=== PATIENT | female | born 1975 | race Caucasian/White ===

== ENCOUNTER 2023-04-05 15:06 | Day surgery (SDC) | payer OTHER ==
[2023-04-02 09:14] VITALS: BMI 21.9
[~2023-04-05 15:06] MED LIST: LACTATED RINGERS 1,000 ML IV SCH; LIDOCAINE 1% (10MG/ML) FOR IV START INTRADERMA PRN
[2023-04-05 15:38] VITALS: RESP 16; TEMP 97.8
[2023-04-05] MEDS ORDERED: PROPOFOL 10 MG/ML 20 ML VIAL IV ONE (16:27)
[2023-04-05] MEDS ORDERED: LIDOCAINE 1% INJ 10MG/ML (20 ML MDV) ONE (16:27)
--- NOTE | 2023-04-05 16:31 | P.GSHP ---
History of Present Illness H&P Date: 04/05/23 Chief Complaint: History of colon polyps This a 48-year-old female who presents today for colonoscopy. Patient has a strong family history of colon cancer. She is appears history of colon polyps. She presents today for colonoscopy. Past Medical History Past Medical History: No Reported History History of Any Multi-Drug Resistant Organisms: None Reported Past Surgical History: Bariatric Surgery, Hysterectomy Additional Past Surgical History / Comment(s): gastric bypass ,hysterectomy may 2018, colonoscopy Past Anesthesia/Blood Transfusion Reactions: No Reported Reaction Additional Past Anesthesia/Blood Transfusion Reaction / Comment(s): no blood transfusion Smoking Status: Current every day smoker, Vaper - Past Family History Mother Family Medical History: Cancer Additional Family Medical History / Comment(s): colon cancer Medications and Allergies Home Medications Medication Instructions Recorded Confirmed Type Cetirizine HCl [Zyrtec] 10 mg PO DAILY 04/02/23 04/05/23 History Disulfiram [Antabuse] 250 mg PO HS 04/02/23 04/05/23 History Escitalopram [Lexapro] 20 mg PO HS 04/02/23 04/05/23 History Naltrexone HCl [Revia] 1 tab PO HS 04/02/23 04/05/23 History Allergies Allergy/AdvReac Type Severity Reaction Status Date / Time sulfamethoxazole AdvReac Rash/Hives Verified 04/05/23 15:25 [From Bactrim] trimethoprim [From Bactrim] AdvReac Rash/Hives Verified 04/05/23 15:25 Surgical - Exam Vital Signs Temp Pulse Resp BP Pulse Ox 97.8 F 77 16 110/64 99 04/05/23 15:31 04/05/23 15:31 04/05/23 15:31 04/05/23 15:31 04/05/23 15:31 - General well developed, well nourished, no distress - Eyes PERRL - ENT normal pinna - Neck no masses - Respiratory normal expansion - Cardiovascular Rhythm: regular - Abdomen Abdomen: soft, non tender Assessment and Plan Assessment: History of colon polyps and family history of colonic Cancer. We'll perform colonoscopy.
--- NOTE | 2023-04-05 16:47 | P.OP ---
Date of Procedure: 04/05/23 Preoperative Diagnosis: Family history of colon cancer History: Polyps Postoperative Diagnosis: Diverticulosis Procedure(s) Performed: Colonoscopy Anesthesia: MAC Surgeon: Jay Bell Pathology: none sent Condition: stable Disposition: PACU Description of Procedure: The patient's placed on the endoscopy table in the lateral position. She received IV sedation. Digital rectal exam was performed. This revealed no ebonized. Flexible colonoscope was then placed patient anus and passed throughout the entire colon. The ileocecal valve was visualized. Cecum, ascending and transverse colon appeared normal. In the descending and sigmoid colon; there is mild diverticular changes. Scope summer back the rectum this appeared normal. Scope withdrawn for patient.
[2023-04-05 17:12] VITALS: BP 110/76; PULSE 61
== END 2023-04-05 17:21 | disposition home or self-care (01) ==
LOC: ORWHC2ENDO 15:06
PROVIDERS: ATTEND Surgery
DX: Z12.11 Encounter for screening for malignant neoplasm of colon (principal); K57.30 Diverticulosis of large intestine without perforation or abscess without bleeding; F17.290 Nicotine dependence, other tobacco product, uncomplicated; Z80.0 Family history of malignant neoplasm of digestive organs; Z86.010 Personal history of colon polyps; Z98.84 Bariatric surgery status; Z90.710 Acquired absence of both cervix and uterus; Z79.891 Long term (current) use of opiate analgesic; Z79.899 Other long term (current) drug therapy; Z88.2 Allergy status to sulfonamides; Z88.1 Allergy status to other antibiotic agents
CPT/HCPCS: 45378; J2001; J2704

== ENCOUNTER 2023-06-04 07:21 | Observation (INO) | payer OTHER ==
[2023-06-04] MEDS: SODIUM CHLORIDE 0.9% 2,000 ML IV STA (07:35)
[2023-06-04 07:42] LABS: Basophils % (A) 0 %; Eosinophils % (A) 1 %; HCT 43.3 % (34.0-46.0); HGB 14.2 gm/dL (11.4-16.0); Lymphocytes # (A) 1.5 k/uL (1.0-4.8); Lymphocytes % (A) 25 %; MCH 33.3 pg (25.0-35.0); MCHC 32.8 g/dL (31.0-37.0); MCV 101.6 fL (80.0-100.0); Macrocytosis Slight; Mean Platelet Volume 7.9; Monocytes # (A) 0.3 k/uL (0-1.0); Monocytes % (A) 5 %; Neutrophils % (A) 66 %; Platelet Count 295 k/uL (150-450); RBC 4.26 m/uL (3.80-5.40); RDW 13.1 % (11.5-15.5); WBC 6.1 k/uL (3.8-10.6)
[2023-06-04 07:54] LABS: ALT 19 U/L (4-34); AST 29 U/L (14-36); African American GFR (CKD) >90 (>60 ml/min/1.73 sqM); Alcohol <10 mg/dL; Alkaline Phosphatase 46 U/L (38-126); Anion Gap 13 mmol/L; Blood Urea Nitrogen 9 mg/dL (7-17); Calcium 8.5 mg/dL (8.4-10.2); Carbon Dioxide 21 mmol/L (22-30); Chloride 107 mmol/L (98-107); Glucose 84 mg/dL (74-99); Non-African American GFR(CKD) >90 (>60 ml/min/1.73 sqM); Salicylate 1.4 mg/dL; Sodium 141 mmol/L (137-145); Total Bilirubin 0.4 mg/dL (0.2-1.3); Total Protein 6.8 g/dL (6.3-8.2)
[2023-06-04] MEDS: ONDANSETRON 4 MG/2 ML VIAL IVP STA (08:09)
[2023-06-04 08:37] LABS: Appearance,Urine Clear (Clear); Bacteria,Urine Rare /hpf; Bilirubin,Urine Negative (Negative); Blood,Urine Negative (Negative); Budding Yeast,Urine Occasional /hpf; Color,Urine Yellow; Glucose,Urine (UA) Negative (Negative); Ketones,Urine Negative (Negative); Leukocyte Esterase,Urine Negative (Negative); Mucus,Urine Rare /hpf; Nitrite,Urine Positive (Negative); PH, Urine 5.5 (5.0-8.0); Protein,Urine Trace (Negative); RBC,Urine 1 /hpf (0-5); Squamous Epithelial Cell,Urine 5 /hpf (0-4); Urobilinogen,Urine <2.0 mg/dL (<2.0); WBC,Urine 11 /hpf (0-5)
[2023-06-04] MEDS: DEXTROSE 5% IV ONE ×4 (08:43→18:54)
[2023-06-04] MEDS: ACETYLCYSTEINE IV ONE ×4 (08:43→18:54)
[2023-06-04] MEDS: WATER IV ONE ×4 (08:43→18:54)
[2023-06-04 08:47] LABS: Amphetamine Screen,Urine Not Detected (NotDetected); Barbiturate Screen,Urine Not Detected (NotDetected); Benzodiazepines Screen,Urine Detected (NotDetected); Cocaine Screen,Urine Not Detected (NotDetected); Methadone Screen, Urine Detected (NotDetected); Opiate Screen,Urine Not Detected (NotDetected); Oxycodone Screen, Urine Not Detected (NotDetected); Phencyclidine Screen,Urine Not Detected (NotDetected); Tricyclic Antidepressant,Urine Detected (NotDetected); Urn Cannabinoid Scrn Detected (NotDetected)
[2023-06-04] MEDS ORDERED: NALOXONE 0.4 MG/ML 1 ML VIAL IV PRN (08:56)
[2023-06-04] MEDS ORDERED: ONDANSETRON 4 MG/2 ML VIAL IVP PRN (08:56)
--- NOTE | 2023-06-04 08:56 | ED ---
Overdose HPI - General Chief Complaint: Overdose Stated Complaint: alt mental state Time Seen by Provider: 06/04/23 07:25 Source: EMS Mode of arrival: EMS Limitations: no limitations - History of Present Illness Initial Comments: 48-year-old female with past medical history of alcohol abuse, gastric bypass, depression who presents to the emergency department after acute Tylenol PM ingestion. States that at 10 PM last night she took 38 Tylenol PM which includes 500 mg of Tylenol and 25 mg of Benadryl per tablet. States that she ingested this in an attempt to harm herself she also drank some alcohol. She admits to nausea without vomiting. She is supposed to take Lexapro, Antabuse and naltrexone however has not taken these medications in 2 weeks. She denies ingestion of any other substances. Does admit to previous hospitalization for mental health when she was 16. She denies homicidal ideations. No other alleviating, precipitating or modifying factors - Related Data Home Medications Medication Instructions Recorded Confirmed Cetirizine HCl [Zyrtec] 10 mg PO DAILY 04/02/23 06/06/23 Disulfiram [Antabuse] 250 mg PO HS 04/02/23 06/06/23 Escitalopram [Lexapro] 20 mg PO HS 04/02/23 06/06/23 Naltrexone HCl [Revia] 1 tab PO HS 04/02/23 06/06/23 Allergies Allergy/AdvReac Type Severity Reaction Status Date / Time sulfamethoxazole Allergy Rash/Hives Verified 06/06/23 22:28 [From Bactrim] trimethoprim [From Bactrim] Allergy Rash/Hives Verified 06/06/23 22:28 Review of Systems ROS Statement: Those systems with pertinent positive or pertinent negative responses have been documented in the HPI. ROS Other: All systems not noted in ROS Statement are negative. Past Medical History History of Any Multi-Drug Resistant Organisms: None Reported Additional Past Surgical History / Comment(s): gastric bypass Past Psychological History: Anxiety, Depression Smoking Status: Current every day smoker Past Alcohol Use History: Abuse, Daily Past Drug Use History: Marijuana General Exam Limitations: no limitations General appearance: alert, in no apparent distress Head exam: Present: atraumatic, normocephalic, normal inspection Eye exam: Present: normal appearance, PERRL, EOMI. Absent: scleral icterus, conjunctival injection, periorbital swelling ENT exam: Present: normal exam, mucous membranes moist Neck exam: Present: normal inspection. Absent: tenderness, meningismus, lymphadenopathy Respiratory exam: Present: normal lung sounds bilaterally. Absent: respiratory distress, wheezes, rales, rhonchi, stridor Cardiovascular Exam: Present: regular rate, normal rhythm, normal heart sounds. Absent: systolic murmur, diastolic murmur, rubs, gallop, clicks GI/Abdominal exam: Present: soft, normal bowel sounds. Absent: distended, tenderness, guarding, rebound, rigid Extremities exam: Present: normal inspection, full ROM, normal capillary refill. Absent: tenderness, pedal edema, joint swelling, calf tenderness Back exam: Present: normal inspection Neurological exam: Present: alert, oriented X3, CN II-XII intact Psychiatric exam: Present: depressed, suicidal ideation Skin exam: Present: warm, dry, intact, normal color. Absent: rash Course Vital Signs 06/04/23 06/04/23 06/04/23 07:23 07:28 07:30 Temperature 99.1 F Pulse Rate 71 70 70 Respiratory 16 18 19 Rate Blood Pressure 146/92 146/92 146/92 O2 Sat by Pulse 99 99 100 Oximetry 06/04/23 06/04/23 06/04/23 08:00 08:30 09:00 Temperature Pulse Rate 67 63 67 Respiratory 18 17 19 Rate Blood Pressure 144/89 129/82 130/84 O2 Sat by Pulse 99 Oximetry 06/04/23 06/04/23 06/04/23 09:30 10:00 11:00 Temperature Pulse Rate 71 71 73 Respiratory 20 19 19 Rate Blood Pressure 138/83 135/87 131/79 O2 Sat by Pulse 100 97 Oximetry 06/04/23 12:00 Temperature Pulse Rate 67 Respiratory 18 Rate Blood Pressure 123/70 O2 Sat by Pulse 99 Oximetry Medical Decision Making - Medical Decision Making Was pt. sent in by a medical professional or institution (, PA, HEADER SET UP OPERATOR, urgent care, hospital, or longterm...) When possible be specific @ -No Did you speak to anyone other than the patient for history (EMS, parent, family, police, friend...)? What history was obtained from this source @ -EMS Did you review nursing and triage notes (agree or disagree)? Why? @ -I reviewed and agree with nursing and triage notes Were old charts reviewed (outside hosp., previous admission, EMS record, old EKG, old radiological studies, urgent care reports/EKG's, longterm records)? Report findings @ -No old charts were reviewed Differential Diagnosis (chest pain, altered mental status, abdominal pain women, abdominal pain men, vaginal bleeding, weakness, fever, dyspnea, syncope, headache, dizziness, GI bleed, back pain, seizure, CVA, palpatations, mental health, musculoskeletal)? @ -depression, suicidal ideations, homicidal ideations, unintentional overdose EKG interpreted by me (3pts min.). @ -yes and demonstrates sinus rhythm with a rate of 70. WA interval 147. QRS 102. QTC of 433. No acute ST segment elevations or depressions. X-rays interpreted by me (1pt min.). @ -None done CT interpreted by me (1pt min.). @ -None done U/S interpreted by me (1pt. min.). @ -None done What testing was considered but not performed or refused? (CT, X-rays, U/S, labs)? Why? @ -None What meds were considered but not given or refused? Why? @ -None Did you discuss the management of the patient with other professionals (professionals i.e. , PA, HEADER SET UP OPERATOR, lab, RT, psych nurse, social work instructor, music rehabilitation therapist, teacher, combat systems officer, correctional case manager)? Give summary @ -Dr. stokes Was smoking cessation discussed for >3mins.? @ -No Was critical care preformed (if so, how long)? @ -No Were there social determinants of health that impacted care today? How? (Homelessness, low income, unemployed, alcoholism, drug addiction, transportation, low edu. Level, literacy, decrease access to med. care, half-way, rehab)? @ -No Was there de-escalation of care discussed even if they declined (Discuss DNR or withdrawal of care, Hospice)? DNR status @ -No What co-morbidities impacted this encounter? (DM, HTN, Smoking, COPD, CAD, Cancer, CVA, ARF, Chemo, Hep., AIDS, mental health diagnosis, sleep apnea, morbid obesity)? @ -alcohol abuse, illicit drug abuse, depression Was patient admitted / discharged? Hospital course, mention meds given and route, prescriptions, significant lab abnormalities, going to OR and other pertinent info. @ -On arrival patient was placed into room 2. Thorough history and physical exam was performed. IV access was established. 12-lead EKG was obtained. Patient is given a dose of Zofran after normal intervals. Laboratory studies are conducted. We did talk to poison control. Recommended that NAC is started if her 10 hour Tylenol level is above 53. Level does return and is elevated. Patient started on NAC at this time. She did admit to suicidal ideations with attempt therefore patient is petitioned by nurse. Patient will be admitted to [facility] with psychiatry to consult Undiagnosed new problem with uncertain prognosis? @ -No Drug Therapy requiring intensive monitoring for toxicity (Heparin, Nitro, Insulin, Cardizem)? @ -No Were any procedures done? @ -No Diagnosis/symptom? @ -acute depression, acute intentional overdose Acute, or Chronic, or Acute on Chronic? @ -acute Uncomplicated (without systemic symptoms) or Complicated (systemic symptoms)? @ -complicated Side effects of treatment? @ -vomiting Exacerbation, Progression, or Severe Exacerbation? @ -No Poses a threat to life or bodily function? How? (Chest pain, USA, GA, pneumonia, PE, COPD, DKA, ARF, appy, cholecystitis, CVA, Diverticulitis, Homicidal, Suicidal, threat to staff... and all critical care pts) @ -yes, patient took medication in excess to overdose - Lab Data Result diagrams: 06/05/23 06:14 06/06/23 05:23 Lab Results 06/04/23 06/04/23 06/04/23 Range/Units 07:29 07:29 07:29 WBC 6.1 (3.8-10.6) k/uL RBC 4.26 (3.80-5.40) m/uL Hgb 14.2 (11.4-16.0) gm/dL Hct 43.3 (34.0-46.0) % MCV 101.6 H (80.0-100.0) fL MCH 33.3 (25.0-35.0) pg MCHC 32.8 (31.0-37.0) g/dL RDW 13.1 (11.5-15.5) % Plt Count 295 (150-450) k/uL MPV 7.9 Neutrophils % 66 % Lymphocytes % 25 % Monocytes % 5 % Eosinophils % 1 % Basophils % 0 % Neutrophils # 4.0 (1.3-7.7) k/uL Lymphocytes # 1.5 (1.0-4.8) k/uL Monocytes # 0.3 (0-1.0) k/uL Eosinophils # 0.0 (0-0.7) k/uL Basophils # 0.0 (0-0.2) k/uL Macrocytosis Slight Sodium (137-145) mmol/L Potassium (3.5-5.1) mmol/L Chloride (98-107) mmol/L Carbon Dioxide (22-30) mmol/L Anion Gap mmol/L BUN (7-17) mg/dL Creatinine (0.52-1.04) mg/dL Est GFR (CKD-EPI)AfAm (>60 ml/min/1.73 sqM) Est GFR (CKD-EPI)NonAf (>60 ml/min/1.73 sqM) Glucose (74-99) mg/dL Calcium (8.4-10.2) mg/dL Total Bilirubin (0.2-1.3) mg/dL AST (14-36) U/L ALT (4-34) U/L Alkaline Phosphatase (38-126) U/L Total Protein (6.3-8.2) g/dL Albumin (3.5-5.0) g/dL Urine Color Yellow Urine Appearance Clear (Clear) Urine pH 5.5 (5.0-8.0) Ur Specific [place] 1.050 H (1.001-1.035) Urine Protein Trace H (Negative) Urine Glucose (UA) Negative (Negative) Urine Ketones Negative (Negative) Urine Blood Negative (Negative) Urine Nitrite Positive H (Negative) Urine Bilirubin Negative (Negative) Urine Urobilinogen <2.0 (<2.0) mg/dL Ur Leukocyte Esterase Negative (Negative) Urine RBC 1 (0-5) /hpf Urine WBC 11 H (0-5) /hpf Ur Squamous Epith Cells 5 H (0-4) /hpf Urine Bacteria Rare H (None) /hpf Urine Mucus Rare H (None) /hpf Urine Yeast (Budding) Occasional H (None) /hpf Urine HCG, Qual Not Detected (Not Detectd) Salicylates mg/dL Urine Opiates Screen Not Detected (NotDetected) Ur Oxycodone Screen Not Detected (NotDetected) Urine Methadone Screen Detected H (NotDetected) Acetaminophen ug/mL Ur Barbiturates Screen Not Detected (NotDetected) U Tricyclic Antidepress Detected H (NotDetected) Ur Phencyclidine Scrn Not Detected (NotDetected) Ur Amphetamines Screen Not Detected (NotDetected) U Methamphetamines Scrn Not Detected (NotDetected) U Benzodiazepines Scrn Detected H (NotDetected) Urine Cocaine Screen Not Detected (NotDetected) U Marijuana (THC) Screen Detected H (NotDetected) Serum Alcohol mg/dL 06/04/23 Range/Units 07:29 WBC (3.8-10.6) k/uL RBC (3.80-5.40) m/uL Hgb (11.4-16.0) gm/dL Hct (34.0-46.0) % MCV (80.0-100.0) fL MCH (25.0-35.0) pg MCHC (31.0-37.0) g/dL RDW (11.5-15.5) % Plt Count (150-450) k/uL MPV Neutrophils % % Lymphocytes % % Monocytes % % Eosinophils % % Basophils % % Neutrophils # (1.3-7.7) k/uL Lymphocytes # (1.0-4.8) k/uL Monocytes # (0-1.0) k/uL Eosinophils # (0-0.7) k/uL Basophils # (0-0.2) k/uL Macrocytosis Sodium 141 (137-145) mmol/L Potassium 4.0 (3.5-5.1) mmol/L Chloride 107 (98-107) mmol/L Carbon Dioxide 21 L (22-30) mmol/L Anion Gap 13 mmol/L BUN 9 (7-17) mg/dL Creatinine 0.56 (0.52-1.04) mg/dL Est GFR (CKD-EPI)AfAm >90 (>60 ml/min/1.73 sqM) Est GFR (CKD-EPI)NonAf >90 (>60 ml/min/1.73 sqM) Glucose 84 (74-99) mg/dL Calcium 8.5 (8.4-10.2) mg/dL Total Bilirubin 0.4 (0.2-1.3) mg/dL AST 29 (14-36) U/L ALT 19 (4-34) U/L Alkaline Phosphatase 46 (38-126) U/L Total Protein 6.8 (6.3-8.2) g/dL Albumin 4.0 (3.5-5.0) g/dL Urine Color Urine Appearance (Clear) Urine pH (5.0-8.0) Ur Specific [place] (1.001-1.035) Urine Protein (Negative) Urine Glucose (UA) (Negative) Urine Ketones (Negative) Urine Blood (Negative) Urine Nitrite (Negative) Urine Bilirubin (Negative) Urine Urobilinogen (<2.0) mg/dL Ur Leukocyte Esterase (Negative) Urine RBC (0-5) /hpf Urine WBC (0-5) /hpf Ur Squamous Epith Cells (0-4) /hpf Urine Bacteria (None) /hpf Urine Mucus (None) /hpf Urine Yeast (Budding) (None) /hpf Urine HCG, Qual (Not Detectd) Salicylates 1.4 mg/dL Urine Opiates Screen (NotDetected) Ur Oxycodone Screen (NotDetected) Urine Methadone Screen (NotDetected) Acetaminophen 56.0 H* ug/mL Ur Barbiturates Screen (NotDetected) U Tricyclic Antidepress (NotDetected) Ur Phencyclidine Scrn (NotDetected) Ur Amphetamines Screen (NotDetected) U Methamphetamines Scrn (NotDetected) U Benzodiazepines Scrn (NotDetected) Urine Cocaine Screen (NotDetected) U Marijuana (THC) Screen (NotDetected) Serum Alcohol <10 mg/dL Disposition Clinical Impression: Drug overdose, Acetaminophen overdose Disposition: ADMITTED IP TO THIS [facility] Condition: Fair Is patient prescribed a controlled substance at d/c from ED?: No Time of Disposition: 08:56 Decision to Admit Reason: Admit from EC Decision Date: 06/04/23 Decision Time: 08:56
[2023-06-04] MEDS: SODIUM CHLORIDE 0.9% 1,000 ML IV SCH (09:22)
--- NOTE | 2023-06-04 10:33 | P.HPIM ---
History of Present Illness 48-year-old female came in after ingestion of 30 Tylenol PM which she has diphenhydramine (Benadryl) and acetaminophen. Patient last took these medications 10 PM yesterday, toxic acetaminophen levels by this time will be around 53 her present level is 56 because of which patient was suggested to be started on acetyl cystine and patient is being admitted patient had suicidal ideations when she took care of his medications patient does have history of depression still depressed at this time. Patient does have history of fall call abuse did have history of gastric bypass surgery in the past she was having nausea without any vomiting. REVIEW OF SYSTEMS: CONSTITUTIONAL: No fever, no malaise, no fatigue. HEENT: No recent visual problems or hearing problems. Denied any sore throat. CARDIOVASCULAR: No chest pain, orthopnea, PND, no palpitations, no syncope. PULMONARY: No shortness of breath, no cough, no hemoptysis. GASTROINTESTINAL: No diarrhea, no nausea, no vomiting, no abdominal pain. NEUROLOGICAL: No headaches, no weakness, no numbness. HEMATOLOGICAL: Denies any bleeding or petechiae. GENITOURINARY: Denies any burning micturition, frequency, or urgency. MUSCULOSKELETAL/RHEUMATOLOGICAL: Denies any joint pain, swelling, or any muscle pain. ENDOCRINE: Denies any polyuria or polydipsia. The rest of the 14-point review of systems is negative. PHYSICAL EXAMINATION: GENERAL: The patient is alert and oriented x3, not in any acute distress. Well developed, well nourished. HEENT: Pupils are round and equally reacting to light. EOMI. No scleral icterus. No conjunctival pallor. Normocephalic, atraumatic. No pharyngeal erythema. No thyromegaly. CARDIOVASCULAR: S1 and S2 present. No murmurs, rubs, or gallops. PULMONARY: Chest is clear to auscultation, no wheezing or crackles. ABDOMEN: Soft, nontender, nondistended, normoactive bowel sounds. No palpable organomegaly. MUSCULOSKELETAL: No joint swelling or deformity. EXTREMITIES: No cyanosis, clubbing, or pedal edema. NEUROLOGICAL: Gross neurological examination did not reveal any focal deficits. SKIN: No rashes. Assessment and plan -Overdose on acetaminophen: for which patient is on acetylcysteine patient liver enzymes will be closely monitored area -Overdose of diphenhydramine for which we need to monitor for QT prolongation and cardiac arrhythmias and seizures patient is clinically stable at this time. EKG didn't show any QT prolongation -Depression -History of alcohol abuse -Suicidal ideation secondary to consultation and one-on-one sitter DVT prophylaxis: Early ambulation Past Medical History History of Any Multi-Drug Resistant Organisms: None Reported Additional Past Surgical History / Comment(s): gastric bypass Past Psychological History: Anxiety, Depression Smoking Status: Current every day smoker Past Alcohol Use History: Abuse, Daily Past Drug Use History: Marijuana Medications and Allergies Home Medications Medication Instructions Recorded Confirmed Type Cetirizine HCl [Zyrtec] 10 mg PO DAILY 04/02/23 06/04/23 History Disulfiram [Antabuse] 250 mg PO HS 04/02/23 06/04/23 History Escitalopram [Lexapro] 20 mg PO HS 04/02/23 06/04/23 History Naltrexone HCl [Revia] 1 tab PO HS 04/02/23 06/04/23 History Allergies Allergy/AdvReac Type Severity Reaction Status Date / Time sulfamethoxazole Allergy Rash/Hives Verified 06/04/23 09:08 [From Bactrim] trimethoprim [From Bactrim] Allergy Rash/Hives Verified 06/04/23 09:08 Physical Exam Vitals: Vital Signs Temp Pulse Resp BP Pulse Ox 06/04/23 10:00 71 19 135/87 100 06/04/23 09:30 71 20 138/83 06/04/23 09:00 67 19 130/84 06/04/23 08:30 63 17 129/82 99 06/04/23 08:00 67 18 144/89 06/04/23 07:30 70 19 146/92 100 06/04/23 07:28 70 18 146/92 99 06/04/23 07:23 99.1 F 71 16 146/92 99 Intake and Output 06/03/23 06/04/23 06/04/23 22:59 06:59 14:59 Other: Weight 64.41 kg Results CBC & Chem 7: 06/04/23 07:29 06/04/23 07:29 Labs: Abnormal Lab Results - Last 24 Hours (Table) 06/04/23 06/04/23 06/04/23 Range/Units 07:29 07:29 07:29 MCV 101.6 H (80.0-100.0) fL Carbon Dioxide 21 L (22-30) mmol/L Ur Specific [place] 1.050 H (1.001-1.035) Urine Protein Trace H (Negative) Urine Nitrite Positive H (Negative) Urine WBC 11 H (0-5) /hpf Ur Squamous Epith Cells 5 H (0-4) /hpf Urine Bacteria Rare H (None) /hpf Urine Mucus Rare H (None) /hpf Urine Yeast (Budding) Occasional H (None) /hpf Urine Methadone Screen Detected H (NotDetected) Acetaminophen 56.0 H* ug/mL U Tricyclic Antidepress Detected H (NotDetected) U Benzodiazepines Scrn Detected H (NotDetected) U Marijuana (THC) Screen Detected H (NotDetected)
[2023-06-04 12:41] VITALS: RESP 18
[2023-06-04 16:51] LABS: ALT 17 U/L (4-34); AST 25 U/L (14-36); African American GFR (CKD) >90 (>60 ml/min/1.73 sqM); Albumin 3.4 g/dL (3.5-5.0); Alkaline Phosphatase 36 U/L (38-126); Anion Gap 9 mmol/L; Blood Urea Nitrogen 8 mg/dL (7-17); Calcium 8.3 mg/dL (8.4-10.2); Carbon Dioxide 22 mmol/L (22-30); Chloride 105 mmol/L (98-107); Glucose 73 mg/dL (74-99); Non-African American GFR(CKD) >90 (>60 ml/min/1.73 sqM); Potassium 3.9 mmol/L (3.5-5.1); Sodium 136 mmol/L (137-145); Total Bilirubin 0.6 mg/dL (0.2-1.3); Total Protein 5.9 g/dL (6.3-8.2)
[2023-06-04 16:53] LABS: INR 1.1 (<1.2); Prothrombin Time 11.9 sec (10.0-12.5)
[2023-06-04] MEDS: ESCITALOPRAM 20 MG TAB PO SCH (19:56)
[2023-06-05 09:36] LABS: INR 1.1 (<1.2); Prothrombin Time 11.9 sec (10.0-12.5)
[2023-06-05 10:14] LABS: Basophils # (A) 0.04 X 10*3/uL (0.00-0.10); Basophils % (A) 0.8 %; Eosinophils # (A) 0.08 X 10*3/uL (0.04-0.35); Eosinophils % (A) 1.5 %; HCT 37.4 % (37.2-46.3); HGB 12.3 g/dL (12.0-15.0); Lymphocytes # (A) 2.32 X 10*3/uL (0.90-5.00); Lymphocytes % (A) 43.9 %; MCH 32.8 pg (27.0-32.0); MCHC 32.9 g/dL (32.0-37.0); MCV 99.7 FL (80.0-97.0); Mean Platelet Volume 10.2 FL (9.5-12.2); Monocytes % (A) 9.5 %; NRBC Per 100 WBC 0 X 10*3/uL (0.00-0.01); Neutrophils # (A) 2.33 X 10*3/uL (1.80-7.70); Neutrophils % (A) 44.1 %; Platelet Count 233 X 10*3/uL (140-440); RBC 3.75 X 10*6/uL (4.10-5.20); RDW 13.2 % (11.5-14.5); WBC 5.28 X 10*3/uL (4.50-10.00)
[2023-06-05 10:20] LABS: ALT 12 U/L (8-44); AST 16 U/L (13-35); Albumin 3.2 g/dL (3.8-4.9); Alkaline Phosphatase 30 U/L (41-126); Carbon Dioxide 23.1 mmol/L (21.6-31.8); Chloride 107 mmol/L (96-109); Globulin 1.6 g/dL (1.6-3.3); Glucose 126 mg/dL (70-110); Potassium 3.7 mmol/L (3.5-5.5); Sodium 136 mmol/L (135-145); Total Bilirubin 0.4 mg/dL (0.3-1.2); Total Protein 4.8 g/dL (6.2-8.2)
--- NOTE | 2023-06-05 14:53 | P.PN ---
Subjective Progress Note Date: 06/05/23 * 48-year-old female came in after ingestion of 30 Tylenol PM which she has diphenhydramine (Benadryl) and acetaminophen. Patient last took these medications 10 PM yesterday, toxic acetaminophen levels by this time will be around 53 her present level is 56 because of which patient was suggested to be started on acetyl cystine and patient is being admitted patient had suicidal ideations when she took care of his medications patient does have history of depression still depressed at this time. Patient does have history of fall call abuse did have history of gastric bypass surgery in the past she was having nausea without any vomiting. * 06/05/2023: Patient seen and evaluated bedside, patient completed an surgical cystine protocol. Follow-up basic and a liver profile improved wasn't controlled following follow-up on liver profile awaiting psychiatry evaluation PHYSICAL EXAMINATION: GENERAL: The patient is alert and oriented x3, not in any acute distress. Well developed, well nourished. HEENT: Pupils are round and equally reacting to light. EOMI. No scleral icterus. No conjunctival pallor. Normocephalic, atraumatic. No pharyngeal erythema. No thyromegaly. CARDIOVASCULAR: S1 and S2 present. No murmurs, rubs, or gallops. PULMONARY: Chest is clear to auscultation, no wheezing or crackles. ABDOMEN: Soft, nontender, nondistended, normoactive bowel sounds. No palpable organomegaly. MUSCULOSKELETAL: No joint swelling or deformity. EXTREMITIES: No cyanosis, clubbing, or pedal edema. NEUROLOGICAL: Gross neurological examination did not reveal any focal deficits. SKIN: No rashes. Objective - Vital Signs Vital signs: Vital Signs Temp 98.4 F 06/05/23 07:01 Pulse 76 06/05/23 08:15 Resp 18 06/05/23 07:01 BP 112/63 06/05/23 07:01 Pulse Ox 97 06/05/23 07:01 FiO2 Intake & Output 06/04/23 06/05/23 06/05/23 18:59 06:59 18:59 Weight 64.41 kg 64.41 kg Other: Voiding Method Toilet # Voids 2 - Labs CBC & Chem 7: 06/05/23 06:14 06/05/23 06:14 Labs: Abnormal Lab Results - Last 24 Hours (Table) 06/04/23 06/05/23 06/05/23 Range/Units 16:08 06:14 06:14 RBC 3.75 L (4.10-5.20) X 10*6/uL MCV 99.7 H (80.0-97.0) FL MCH 32.8 H (27.0-32.0) pg Sodium 136 L (137-145) mmol/L BUN 5.0 L (9.0-27.0) mg/dL Creatinine 0.42 L 0.4 L (0.52-1.04) mg/dL Glucose 73 L 126 H (74-99) mg/dL Calcium 8.3 L 8.0 L (8.4-10.2) mg/dL Alkaline Phosphatase 36 L 30 L (38-126) U/L Total Protein 5.9 L 4.8 L (6.3-8.2) g/dL Albumin 3.4 L 3.2 L (3.5-5.0) g/dL Assessment and Plan Assessment: Assessment and plan Overdose on acetaminophen, with acute intoxication Suicidal ideation with overdose on acetaminophen and diphenhydramine Major depression History of alcohol use * In regards to overdose on acetaminophen, follow-up based on Wednesday for levels within normal limits, completed N-acetylcysteine, poison control following * Follow-up on liver profile, psychiatry consulted continue to maintain safety precautions * Continue with fluid resuscitation
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
[2023-06-05] MEDS ORDERED: NON FORMULARY DRUG (Disulfiram 250 MG Tab) PO SCH (21:00)
[2023-06-06 10:15] LABS: ALT 14 U/L (8-44); AST 19 U/L (13-35); Albumin 3.5 g/dL (3.8-4.9); Albumin/Globulin Ratio 1.94 Ratio (1.60-3.17); Alkaline Phosphatase 33 U/L (41-126); Blood Urea Nitrogen 7.6 mg/dL (9.0-27.0); Calcium 8.9 mg/dL (8.7-10.3); Chloride 106 mmol/L (96-109); Globulin 1.8 g/dL (1.6-3.3); Glucose 88 mg/dL (70-110); Potassium 3.9 mmol/L (3.5-5.5); Sodium 140 mmol/L (135-145); Total Bilirubin 0.2 mg/dL (0.3-1.2); Total Protein 5.3 g/dL (6.2-8.2)
--- NOTE | 2023-06-06 14:10 | P.PN ---
Subjective Progress Note Date: 06/06/23 * 48-year-old female came in after ingestion of 30 Tylenol PM which she has diphenhydramine (Benadryl) and acetaminophen. Patient last took these medications 10 PM yesterday, toxic acetaminophen levels by this time will be around 53 her present level is 56 because of which patient was suggested to be started on acetyl cystine and patient is being admitted patient had suicidal ideations when she took care of his medications patient does have history of depression still depressed at this time. Patient does have history of fall call abuse did have history of gastric bypass surgery in the past she was having nausea without any vomiting. * 06/05/2023: Patient seen and evaluated bedside, patient completed N Acetylcytine protocol. Follow-up basic and a liver profile improved wasn't controlled following follow-up on liver profile awaiting psychiatry evaluation * 06/06/2023: Patient seen and evaluated bedside, on evaluation patient is alert and oriented 4. Liver profile within normal limits medically stable will need to be discharged to psychiatry depending bed availability PHYSICAL EXAMINATION: GENERAL: The patient is alert and oriented x3, not in any acute distress. Well developed, well nourished. HEENT: Pupils are round and equally reacting to light. EOMI. No scleral icterus. No conjunctival pallor. Normocephalic, atraumatic. No pharyngeal erythema. No thyromegaly. CARDIOVASCULAR: S1 and S2 present. No murmurs, rubs, or gallops. PULMONARY: Chest is clear to auscultation, no wheezing or crackles. ABDOMEN: Soft, nontender, nondistended, normoactive bowel sounds. No palpable organomegaly. MUSCULOSKELETAL: No joint swelling or deformity. EXTREMITIES: No cyanosis, clubbing, or pedal edema. NEUROLOGICAL: Gross neurological examination did not reveal any focal deficits. Objective - Vital Signs Vital signs: Vital Signs Temp 98.2 F 06/06/23 06:53 Pulse 62 06/06/23 06:53 Resp 18 06/06/23 06:53 BP 124/68 06/06/23 06:53 Pulse Ox 97 06/06/23 06:53 FiO2 Intake & Output 06/05/23 06/06/23 06/06/23 18:59 06:59 18:59 Weight 60 kg Other: Voiding Method Toilet # Voids 4 2 - Labs CBC & Chem 7: 06/05/23 06:14 06/06/23 05:23 Labs: Abnormal Lab Results - Last 24 Hours (Table) 06/06/23 Range/Units 05:23 BUN 7.6 L (9.0-27.0) mg/dL Creatinine 0.5 L (0.6-1.5) mg/dL Total Bilirubin 0.2 L (0.3-1.2) mg/dL Alkaline Phosphatase 33 L (41-126) U/L Total Protein 5.3 L (6.2-8.2) g/dL Albumin 3.5 L (3.8-4.9) g/dL Assessment and Plan Assessment: Assessment and plan Overdose on acetaminophen, with acute intoxication Suicidal ideation with overdose on acetaminophen and diphenhydramine Major depression History of alcohol use * In regards to overdose on acetaminophen, follow-up acetaminophen levels within normal limits, completed N-acetylcysteine, poison control following her liver profile stable * Follow-up on liver profile, psychiatry consulted continue to maintain safety precautions * Appropriately resuscitated with fluid * Will need discharge to psychiatry inpatient
[2023-06-06 15:18] VITALS: BP 108/65; PULSE 64; TEMP 98.8
[2023-06-06] MEDS: NICOTINE 21MG/24HR PATCH TRANSDERM SCH (16:18)
--- NOTE | 2023-06-07 10:04 | P.DS ---
Providers Date of admission: 06/04/23 08:56 Expected date of discharge: 06/07/23 Attending physician: Thuy Cisneros Consults: 06/04/23 08:56 Consult Physician Urgent Consulting Provider: Fco Galarza Consult Reason/Comments: suicide attempt Do you want consulting provider notified?: Yes Primary care physician: Francheska Chandra [facility] Course: * 48-year-old female came in after ingestion of 30 Tylenol PM which she has diphenhydramine (Benadryl) and acetaminophen. Patient last took these medications 10 PM yesterday, toxic acetaminophen levels by this time will be around 53 her present level is 56 because of which patient was suggested to be started on acetyl cystine and patient is being admitted patient had suicidal ideations when she took care of his medications patient does have history of depression still depressed at this time. Patient does have history of fall call abuse did have history of gastric bypass surgery in the past she was having nausea without any vomiting. * 06/05/2023: Patient seen and evaluated bedside, patient completed N Acetylcytine protocol. Follow-up basic and a liver profile improved wasn't controlled following follow-up on liver profile awaiting psychiatry evaluation * 06/06/2023: Patient seen and evaluated bedside, on evaluation patient is alert and oriented 4. Liver profile within normal limits medically stable will need to be discharged to psychiatry depending bed availability PHYSICAL EXAMINATION: GENERAL: The patient is alert and oriented x3, not in any acute distress. Well developed, well nourished. HEENT: Pupils are round and equally reacting to light. EOMI. No scleral icterus. No conjunctival pallor. Normocephalic, atraumatic. No pharyngeal erythema. No thyromegaly. CARDIOVASCULAR: S1 and S2 present. No murmurs, rubs, or gallops. PULMONARY: Chest is clear to auscultation, no wheezing or crackles. ABDOMEN: Soft, nontender, nondistended, normoactive bowel sounds. No palpable organomegaly. MUSCULOSKELETAL: No joint swelling or deformity. EXTREMITIES: No cyanosis, clubbing, or pedal edema. NEUROLOGICAL: Gross neurological examination did not reveal any focal deficits. Assessment and plan * Overdose on acetaminophen, with acute intoxication * Suicidal ideation with overdose on acetaminophen and diphenhydramine * Major depression * History of alcohol use In regards to overdose on acetaminophen, follow-up acetaminophen levels within normal limits, completed N-acetylcysteine, poison control following her liver profile stable Follow-up on liver profile, psychiatry consulted continue to maintain safety precautions Appropriately resuscitated with fluid discharge to psychiatry inpatient Patient Condition at Discharge: Fair Plan - Discharge Summary Discharge Rx Participant: Yes New Discharge Prescriptions: Continue Escitalopram [Lexapro] 20 mg PO HS Disulfiram [Antabuse] 250 mg PO HS Cetirizine HCl [Zyrtec] 10 mg PO DAILY Naltrexone HCl [Revia] 1 tab PO HS Discharge Medication List Cetirizine HCl [Zyrtec] 10 mg PO DAILY 04/02/23 [History] Disulfiram [Antabuse] 250 mg PO HS 04/02/23 [History] Escitalopram [Lexapro] 20 mg PO HS 04/02/23 [History] Naltrexone HCl [Revia] 1 tab PO HS 04/02/23 [History] Follow up Appointment(s)/Referral(s): Francheska Chandra DO [Primary Care Provider] - 1-2 days Discharge Disposition: TRANSFER TO PSYCH HOSP/UNIT
== END 2023-06-06 21:17 ==
LOC: EC 07:21 → INTOOBSV 08:56 → OBSVTOIN 08:56 → 3SCARD 08:56 → 4SSUR 12:40 → UNDODISOB 06-06 21:17
PROVIDERS: ADMIT Internal Medicine; ATTEND Internal Medicine
DX: T39.1X2A Poisoning by 4-Aminophenol derivatives, intentional self-harm, initial encounter (principal); F33.2 Major depressive disorder, recurrent severe without psychotic features; F14.20 Cocaine dependence, uncomplicated; F15.10 Other stimulant abuse, uncomplicated; F10.129 Alcohol abuse with intoxication, unspecified; T45.0X2A Poisoning by antiallergic and antiemetic drugs, intentional self-harm, initial encounter; T43.226A Underdosing of selective serotonin reuptake inhibitors, initial encounter; T50 Poisoning by, adverse effect of and underdosing of diuretics and other and unspecified drugs, medicaments and biological substances; F17.210 Nicotine dependence, cigarettes, uncomplicated; T50.7X6A Underdosing of analeptics and opioid receptor antagonists, initial encounter; Y90.0 Blood alcohol level of less than 20 mg/100 ml; Z60.8 Other problems related to social environment; Z91.128 Patient's intentional underdosing of medication regimen for other reason; Z98.84 Bariatric surgery status; Z28.310 Unvaccinated for COVID-19; Z88.1 Allergy status to other antibiotic agents; Z79.899 Other long term (current) drug therapy; Z63.5 Disruption of family by separation and divorce; Z56.0 Unemployment, unspecified; Z59.82 Transportation insecurity; Z91.198 Patient's noncompliance with other medical treatment and regimen for other reason; Z91.51 Personal history of suicidal behavior; Z81.8 Family history of other mental and behavioral disorders; Z81.3 Family history of other psychoactive substance abuse and dependence
CPT/HCPCS: 96366 ×3; 96361; 96365; 96375; 99285; 36415; 93005; 80053 ×3; 85025 ×2; 85610 ×2; 81001; 81025; 80306; 80143; 87635; 80179; G0378 ×4; G0480; S4990; J2405; J0132; 80320

== ENCOUNTER 2023-06-06 17:39 | Inpatient (IN) | payer MEDICAID, OTHER ==
[2023-06-06] MEDS ORDERED: hydrOXYzine HCL 50 MG/ML 1 ML VIAL IM PRN (17:46)
[2023-06-06] MEDS ORDERED: MAGNESIUM HYDROXIDE 2,400 MG/30 ML CUP PO PRN (17:46)
[2023-06-06] MEDS ORDERED: MAG HYDROX/AL HYDROX/SIMETH 30 ML CUP PO PRN (17:46)
[2023-06-06] MEDS ORDERED: hydrOXYzine pamoate 25 MG CAP PO PRN (17:52)
[2023-06-06] MEDS ORDERED: ONDANSETRON 4 MG TAB PO PRN (17:52)
[2023-06-06] MEDS: ESCITALOPRAM 20 MG TAB PO SCH (22:12)
[2023-06-07] MEDS: NICOTINE 21MG/24HR PATCH TRANSDERM SCH (09:07)
--- NOTE | 2023-06-07 16:35 | P.HP ---
Psychiatric H&P - . H&P Date: 06/07/23 History & Physical: Allergies Allergy/AdvReac Type Severity Reaction Status Date / Time sulfamethoxazole Allergy Rash/Hives Verified 06/06/23 22:28 [From Bactrim] trimethoprim [From Bactrim] Allergy Rash/Hives Verified 06/06/23 22:28 Vital Signs Temp 98 F 06/07/23 06:38 Pulse 78 06/07/23 06:38 Resp 16 06/07/23 06:38 BP 107/57 06/07/23 06:38 Pulse Ox 98 06/07/23 06:38 FiO2 Intake & Output 06/06/23 06/07/23 06/07/23 18:59 06:59 18:59 Weight 60 kg 63.588 kg Laboratory Last Values TSH 2.390 mIU/L (0.465-4.680) 06/07/23 06:00 06/07/23 16:20 Suicide risk assessment: This is the psychiatric assessment on Claudia Cano who is a 48-year-old female and is currently hospitalized with suicidal ideations patient reports that she has been dealing with severe depression which seem to have gotten intense in the last several weeks she reports that she has been thinking about taking an overdose and doing away with herself he also reports that she is at problems with the alcohol addiction since age 32 she admits that she has a lot of time on her hands and she has been and from her was to provide to the support and pays off all her bills including her rent she says that she has a grown-up child and sometimes does talk to him she said that she's been through a substance use program in the past but is not follow through on any recommendations she says that she currently takes Lexapro naltrexone and nicotine patch she said that she had stopped taking the Antabuse in January she also reports that she's been using cocaine and methamphetamine for the last year he said that she stop working several years ago she said that she has attended some AA meetings and recently had dealt with covert infection she admits that she wants to get help and wants to get better and is looking into possibly going into a rehab program she admits that her depression is improving Past history personal and social history patient as described above admits that she has too much time on her hand patient lives by herself and is patient reports that she's been dealing with depression on and off for years and does admit that the alcohol is lot to do with it she also admits using cocaine and methamphetamine for the last year she also admits using cannabis as needed she reports that she was hospitalized on one location at age 16 for suicide attempt but does not remember the details since it was too long ago mental status examination: they will say middle-aged female who appears her age and currently appears in no acute physical distress patient is alert and oriented to time place and person patient is gradually dressed and groomed and street floats OBJECTIVE: speech was appropriate -The conversation is coherent. -There are no abnormalities to the content of thoughts. -There are no abnormalities to the content of thought and no perceptual disturbances. -Fund of general knowledge is probably average. -pts MOOD IS APPROPRIATE . -pts judgement and insight is fair -No suicidal or homicidal ideation. noted cognitively she appears to be intact Plan: 1 the patient will be hospital is on the unit for further evaluation and treatment therapy will be focused on providing supportive care improving her coping abilities for the multimodal treatment patient also participated on the knowles activities individual milieu group OT RT PT and pharmacotherapy approximate length of stay would be 7 to 10 days staff will continue to encourage the patient to participate in the menu treatment social insurance adviser will be involved regarding discharge planning and appropriate accommodation including substance abuse treatment referral inpatient versus outpatient care recommendations as well as psychosocial programs like AA and NA 3 patient will be continued honorable medications that include Lexapro 20 mg at nighttime although she has trouble with insomnia will this is to the morning hydroxyzine 50 mg Q ID PRN Santy batch 21 mg daily will hold off on the Antabuse at this time to go avoid any interaction with her last drink 4 patient denies any suicidal ideations or plans but with the presentation will continue to 15 minute check for safety and supportive care patient plans to go for independent living after discharge and may also consider inpatient substance use program Reza Roger MD 06/07/2023
[2023-06-07] MEDS: ESCITALOPRAM 20 MG TAB PO SCH (21:01)
[2023-06-08] MEDS: LORATADINE 10 MG TAB PO SCH (08:19)
[2023-06-08] MEDS: NICOTINE 21MG/24HR PATCH TRANSDERM SCH (08:19)
[2023-06-08 10:20] LABS: ALT 24 U/L (4-34); AST 32 U/L (14-36); African American GFR (CKD) >90 (>60 ml/min/1.73 sqM); Albumin 4.1 g/dL (3.5-5.0); Alkaline Phosphatase 40 U/L (38-126); Anion Gap 8 mmol/L; Blood Urea Nitrogen 13 mg/dL (7-17); Calcium 9.5 mg/dL (8.4-10.2); Carbon Dioxide 26 mmol/L (22-30); Chloride 105 mmol/L (98-107); Glucose 85 mg/dL (74-99); Non-African American GFR(CKD) >90 (>60 ml/min/1.73 sqM); Potassium 4.5 mmol/L (3.5-5.1); Sodium 139 mmol/L (137-145); Total Bilirubin 0.6 mg/dL (0.2-1.3); Total Protein 6.7 g/dL (6.3-8.2)
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
[2023-06-08] MEDS: ESCITALOPRAM 20 MG TAB PO SCH (22:18)
[2023-06-09] MEDS: NICOTINE 21MG/24HR PATCH TRANSDERM SCH (09:08)
[2023-06-09] MEDS: LORATADINE 10 MG TAB PO SCH (09:08)
[2023-06-09 12:09] LABS: Potassium 4.5 mmol/L (3.5-5.1)
[2023-06-09 12:10] LABS: ALT 24 U/L (4-34); AST 31 U/L (14-36); African American GFR (CKD) >90 (>60 ml/min/1.73 sqM); Albumin 4.3 g/dL (3.5-5.0); Alkaline Phosphatase 47 U/L (38-126); Anion Gap 8 mmol/L; Blood Urea Nitrogen 14 mg/dL (7-17); Calcium 9.5 mg/dL (8.4-10.2); Carbon Dioxide 24 mmol/L (22-30); Chloride 104 mmol/L (98-107); Glucose 87 mg/dL (74-99); Non-African American GFR(CKD) >90 (>60 ml/min/1.73 sqM); Sodium 136 mmol/L (137-145); Total Bilirubin 0.6 mg/dL (0.2-1.3)
--- NOTE | 2023-06-09 14:26 | P.PN ---
Subjective Progress Note Date: 06/09/23 The patient was seen chart was reviewed in case discussed the nursing staff patient reports that she has too much time on her hands and gets her in trouble The patient reports that she has started to feel lot more positive she states that she is making arrangements with her therapist to provider appropriate rights she states that her ex- also has been supportive and is providing the necessary financial support and supervision when she starts her inpatient treatment she says that she finally slept better a game yesterday she denies that she is having any suicidal thoughts and states that our thinking is a lot more positive mental status examination: they will say middle-aged female who appears her age and currently appears in no acute physical distress patient is alert and oriented to time place and person patient is gradually dressed and groomed and street floats OBJECTIVE: speech was appropriate -The conversation is coherent. -There are no abnormalities to the content of thoughts. -There are no abnormalities to the content of thought and no perceptual disturbances. -Fund of general knowledge is probably average. -pts MOOD IS APPROPRIATE . -pts judgement and insight is fair -No suicidal or homicidal ideation. noted cognitively she appears to be intact Plan: staff will continue to encourage the patient to participate in the menu treatment social work job titles will be involved regarding discharge planning and appropriate accommodation including substance abuse treatment referral inpatient versus outpatient care recommendations as well as psychosocial programs like AA and NA 3 patient will be continued medications that include Lexapro 20 mg at nighttime Hydroxyzine PRN Nicotine patch 21 mg daily will hold off on the Antabuse at this time to go avoid any interaction with her last drink 4 patient denies any suicidal ideations or plans but with the presentation will continue to 15 minute check for safety and supportive care patient plans to go for independent living after discharge and may also consider inpatient substance use program Tentative discharge in one to three days Reza hightower MD 06/09/2023 Objective - Vital Signs Vital signs: Vital Signs Temp 98 F 06/09/23 06:46 Pulse 73 06/09/23 06:46 Resp 16 06/09/23 06:46 BP 103/51 06/09/23 06:46 Pulse Ox 98 06/09/23 06:46 FiO2 - Labs CBC & Chem 7: 06/09/23 10:43 Labs: Abnormal Lab Results - Last 24 Hours (Table) 06/09/23 Range/Units 10:43 Sodium 136 L (137-145) mmol/L Creatinine 0.50 L (0.52-1.04) mg/dL
[2023-06-09] MEDS: ESCITALOPRAM 20 MG TAB PO SCH (22:37)
[2023-06-10] MEDS: LORATADINE 10 MG TAB PO SCH (06:47)
[2023-06-10 06:55] VITALS: BP 112/77; PULSE 103; RESP 18; TEMP 97.9
[2023-06-10] MEDS: NICOTINE 21MG/24HR PATCH TRANSDERM SCH (09:02)
--- NOTE | 2023-06-10 14:37 | P.DS ---
Providers Date of admission: 06/06/23 17:39 Attending physician: Natanael Philip MD Consults: 06/06/23 17:46 Consult Physician Routine Consulting Provider: James Murcia Consult Reason/Comments: h & p W/MEDICATION AND MEDICAL MANAGEMENT Do you want consulting provider notified?: Yes Primary care physician: Francheska Chandra - Discharge Diagnosis(es) (1) Major depressive disorder Current Visit: Yes Status: Resolved Priority: High Hospital Course: after hospitalization patient received a routine physical examination please review the initial note from the internists for further details psychiatric problems and fight included psychomotor agitation dysphoria feelings of helplessness hopelessness and suicidal ideations patient is well aware of substance use problems and its contributing factor to her depression and anxiety patient responded favorably to the current management where at the time of discharge patient was not suicidal or homicidal her formal and operational judgment and insight appears to have improved patient has made appropriate plans for follow-up and mental health services and substance use program she was discharged in stable condition with recommendations to follow up as directed MENTAL STATUS EXAMINATION: This is a patient who appears to be of stated age, casually and neatly dressed and in no acute distress. The patient engaged the examiner in a cooperative, friendly and polite manner. The patient demonstrated good eye contact. speech was spontaneous with normal rate, rhythm and tone. reaction time to questions was normal. While affect was appropriate to the situation, mood was euthymic with no evidence of depression, guilt feelings and suicidal or homicidal ideation at this time. stream of mental activity was logical, relevant, coherent and goal directed with no evidence of flight of ideas, looseness of associations, thought blocking, psychomotor retardation, pressured speech, racing thoughts, circumstantiality or tangentiality. thought content revealed no evidence of delusional ideation, interference or responses to internal stimuli, hallucinations, ideas of reference, mood swings, compulsions, obsessions, or any specific preoccupations. The patient was alert and oriented in all three spheres. memory was intact including his immediate, recent past and remote memory. attention and concentration were intact. fund of general information was good. comprehension and understanding were good. intelligence was average; consistent with his level of formal education. judgment, insight and reliability appeared to be good. Plan - Discharge Summary Discharge Rx Participant: Yes New Discharge Prescriptions: New Nicotine 21Mg/24Hr Patch [Habitrol] 1 patch TRANSDERM DAILY patch Nicotine 21Mg/24Hr Patch [Habitrol] 1 each TRANSDERM DAILY 30 Days #30 patch Escitalopram [Lexapro] 20 mg PO DAILY 30 Days #30 tablet Loratadine [Claritin] 10 mg PO DAILY tab hydrOXYzine pamoate [Vistaril] 50 mg PO QID PRN 30 Days #120 cap PRN Reason: Agitation Or Acute Anxiety Continue Escitalopram [Lexapro] 20 mg PO HS Disulfiram [Antabuse] 250 mg PO HS Cetirizine HCl [Zyrtec] 10 mg PO DAILY Naltrexone HCl [Revia] 1 tab PO HS Discharge Medication List Cetirizine HCl [Zyrtec] 10 mg PO DAILY 04/02/23 [History] Disulfiram [Antabuse] 250 mg PO HS 04/02/23 [History] Escitalopram [Lexapro] 20 mg PO HS 04/02/23 [History] Naltrexone HCl [Revia] 1 tab PO HS 04/02/23 [History] Escitalopram [Lexapro] 20 mg PO DAILY 30 Days #30 tablet 06/10/23 [Rx] Loratadine [Claritin] 10 mg PO DAILY tab 06/10/23 [Rx] Nicotine 21Mg/24Hr Patch [Habitrol] 1 each TRANSDERM DAILY 30 Days #30 patch 06/10/23 [Rx] Nicotine 21Mg/24Hr Patch [Habitrol] 1 patch TRANSDERM DAILY patch 06/10/23 [Rx] hydrOXYzine pamoate [Vistaril] 50 mg PO QID PRN 30 Days #120 cap 06/10/23 [Rx] Follow up Appointment(s)/Referral(s): [facility] [Outside] - 06/14/23 9:30 am (06-14-23 at 9:30 with Deborah Garcia 06-14-23 at 10:[address] Roland Both at the [place] office) Francheska Chandra DO [Primary Care Provider] - 1 Week Patient Instructions/Handouts: Depression (DC), Suicide Prevention (DC) Activity/Diet/Wound Care/Special Instructions: Avoid the use of street drugs and alcohol. Take all medications as prescribed. When you are in need of refills on your medications, please contact your medical provider and/or outpatient psychiatrist/provider to have this done. Please go to your scheduled outpatient appointment for aftercare treatment. If symptoms return or become worse, call the crisis line at and/or go to the nearest emergency room for evaluation. National Suicide Hotline 988. Discharge Disposition: HOME SELF-CARE
== END 2023-06-10 16:28 | disposition home or self-care (01) | DRG 754 ==
LOC: 3MHU 17:39
PROVIDERS: ADMIT Psychiatry & Neurology Psychiatry; ATTEND Psychiatry & Neurology Psychiatry
DX: F32.9 Major depressive disorder, single episode, unspecified (principal); R45.851 Suicidal ideations; Z28.310 Unvaccinated for COVID-19; F41.9 Anxiety disorder, unspecified; G47.00 Insomnia, unspecified; Z79.899 Other long term (current) drug therapy; Z88.1 Allergy status to other antibiotic agents; Z88.2 Allergy status to sulfonamides
CPT/HCPCS: 80053; 83036; 84443

== ENCOUNTER 2023-08-28 12:03 | Emergency (ER) | payer OTHER ==
[2023-08-28 13:04] LABS: Amphetamine Screen,Urine Not Detected (NotDetected); Barbiturate Screen,Urine Not Detected (NotDetected); Benzodiazepines Screen,Urine Detected (NotDetected); Cocaine Screen,Urine Not Detected (NotDetected); Methadone Screen, Urine Not Detected (NotDetected); Opiate Screen,Urine Not Detected (NotDetected); Oxycodone Screen, Urine Not Detected (NotDetected); Phencyclidine Screen,Urine Not Detected (NotDetected); Tricyclic Antidepressant,Urine Not Detected (NotDetected); Urn Cannabinoid Scrn Not Detected (NotDetected)
--- NOTE | 2023-08-28 14:15 | ED ---
Psych HPI - General Chief Complaint: Psychiatric Symptoms Stated Complaint: Psych Time Seen by Provider: 08/28/23 12:15 Source: patient, EMS, RN notes reviewed Mode of arrival: EMS Limitations: no limitations - History of Present Illness Initial Comments: 48-year-old female presents emergency department with chief complaint of depression, suicide ideation. Patient states that she is having worsening depression she states that she has been drinking alcohol she states she was sober but only for a couple days. She supposed to be on naltrexone and Antabuse but states she not been taking it. She denies any physical complaints. Patient denies being homicidal. - Related Data Home Medications Medication Instructions Recorded Confirmed Cetirizine HCl [Zyrtec] 10 mg PO DAILY 04/02/23 08/28/23 Disulfiram [Antabuse] 250 mg PO HS 04/02/23 08/28/23 Naltrexone HCl [Revia] 50 mg PO DAILY 04/02/23 08/28/23 Naltrexone Microspheres [Vivitrol] 380 mg IM Q28D 08/28/23 08/28/23 Previous Rx's Medication Instructions Recorded Escitalopram [Lexapro] 20 mg PO DAILY 30 Days #30 tablet 06/10/23 hydrOXYzine pamoate [Vistaril] 50 mg PO QID PRN 30 Days #120 cap 06/10/23 Allergies Allergy/AdvReac Type Severity Reaction Status Date / Time sulfamethoxazole Allergy Rash/Hives Verified 08/28/23 14:48 [From Bactrim] trimethoprim [From Bactrim] Allergy Rash/Hives Verified 08/28/23 14:48 Review of Systems ROS Statement: Those systems with pertinent positive or pertinent negative responses have been documented in the HPI. ROS Other: All systems not noted in ROS Statement are negative. Past Medical History Past Medical History: No Reported History History of Any Multi-Drug Resistant Organisms: None Reported Additional Past Surgical History / Comment(s): gastric bypass Past Anesthesia/Blood Transfusion Reactions: No Reported Reaction Past Psychological History: Anxiety, Depression Smoking Status: Current every day smoker Past Alcohol Use History: Abuse, Daily Past Drug Use History: Marijuana General Exam Limitations: no limitations General appearance: alert, in no apparent distress Head exam: Present: atraumatic, normocephalic, normal inspection Eye exam: Present: normal appearance, PERRL, EOMI. Absent: scleral icterus, conjunctival injection, periorbital swelling ENT exam: Present: normal exam, normal oropharynx, mucous membranes moist Neck exam: Present: normal inspection, full ROM. Absent: tenderness, meningismus, lymphadenopathy Respiratory exam: Present: normal lung sounds bilaterally. Absent: respiratory distress, wheezes, rales, rhonchi, stridor Cardiovascular Exam: Present: regular rate, normal rhythm, normal heart sounds. Absent: systolic murmur, diastolic murmur, rubs, gallop, clicks GI/Abdominal exam: Present: soft, normal bowel sounds. Absent: distended, tenderness, guarding, rebound, rigid Neurological exam: Present: alert, oriented X3 Psychiatric exam: Present: flat affect Course Vital Signs 08/28/23 08/28/23 08/28/23 12:07 18:19 19:35 Temperature 98.2 F 98.1 F 98.0 F Pulse Rate 76 90 81 Respiratory 18 18 18 Rate Blood Pressure 128/79 104/66 114/66 O2 Sat by Pulse 97 98 99 Oximetry 08/29/23 06:55 Temperature 98.1 F Pulse Rate 66 Respiratory 18 Rate Blood Pressure 102/64 O2 Sat by Pulse 99 Oximetry Medical Decision Making - Medical Decision Making Was pt. sent in by a medical professional or institution (, PA, GEAR TECHNICIAN, urgent care, hospital, or longterm...) When possible be specific @ -No Did you speak to anyone other than the patient for history (EMS, parent, family, police, friend...)? What history was obtained from this source @ -No Did you review nursing and triage notes (agree or disagree)? Why? @ -I reviewed and agree with nursing and triage notes Were old charts reviewed (outside hosp., previous admission, EMS record, old EKG, old radiological studies, urgent care reports/EKG's, longterm records)? Report findings @ -No old charts were reviewed Differential Diagnosis (chest pain, altered mental status, abdominal pain women, abdominal pain men, vaginal bleeding, weakness, fever, dyspnea, syncope, headache, dizziness, GI bleed, back pain, seizure, CVA, palpatations, mental health, musculoskeletal)? @ -Differential Mental Health Depression, anxiety, bipolar, psychosis, schizophrenia, borderline personality, situational depression, adjustment disorder, behavioral disorder, brain tumor, malingering, substance abuse, encephalopathy, medication reaction, dementia, hypothyroidism, degenerative neurologic disorder, lupus.... This is not meant to be all-inclusive list EKG interpreted by me (3pts min.). @ -None X-rays interpreted by me (1pt min.). @ -None done CT interpreted by me (1pt min.). @ -None done U/S interpreted by me (1pt. min.). @ -None done What testing was considered but not performed or refused? (CT, X-rays, U/S, labs)? Why? @ -None What meds were considered but not given or refused? Why? @ -None Did you discuss the management of the patient with other professionals (professionals i.e. Dr., PA, GEAR TECHNICIAN, lab, RT, psych nurse, social science analyst, assistant spa director, teacher, navigation officer, case mgr)? Give summary @ -[EPS/psychiatrist evaluated the patient recommend the patient be discharged with safety plan and follow-up for alcohol abuse Was smoking cessation discussed for >3mins.? @ -No Was critical care preformed (if so, how long)? @ -No Were there social determinants of health that impacted care today? How? (Homelessness, low income, unemployed, alcoholism, drug addiction, transportation, low edu. Level, literacy, decrease access to med. care, long term, rehab)? @ -No Was there de-escalation of care discussed even if they declined (Discuss DNR or withdrawal of care, Hospice)? DNR status @ -No What co-morbidities impacted this encounter? (DM, HTN, Smoking, COPD, CAD, Cancer, CVA, ARF, Chemo, Hep., AIDS, mental health diagnosis, sleep apnea, morbid obesity)? @ -None Was patient admitted / discharged? Hospital course, mention meds given and route, prescriptions, significant lab abnormalities, going to OR and other pertinent info. @ -Discharge patient's patient was evaluated EPS recommended for outpatient safety planning treatment. Undiagnosed new problem with uncertain prognosis? @ -No Drug Therapy requiring intensive monitoring for toxicity (Heparin, Nitro, Insulin, Cardizem)? @ -No Were any procedures done? @ -No Diagnosis/symptom? @ -Depression, alcohol abuse Acute, or Chronic, or Acute on Chronic? @ -Acute Uncomplicated (without systemic symptoms) or Complicated (systemic symptoms)? @ -Uncomplicated Side effects of treatment? @ -No Exacerbation, Progression, or Severe Exacerbation? @ -No Poses a threat to life or bodily function? How? (Chest pain, [place], [place], pneumonia, PE, COPD, DKA, ARF, appy, cholecystitis, CVA, Diverticulitis, Homicidal, Suicidal, threat to staff... and all critical care pts) @ -No - Lab Data Lab Results 08/28/23 08/28/23 Range/Units 12:30 13:06 Urine Opiates Screen Not Detected (NotDetected) Ur Oxycodone Screen Not Detected (NotDetected) Urine Methadone Screen Not Detected (NotDetected) Ur Barbiturates Screen Not Detected (NotDetected) U Tricyclic Antidepress Not Detected (NotDetected) Ur Phencyclidine Scrn Not Detected (NotDetected) Ur Amphetamines Screen Not Detected (NotDetected) U Methamphetamines Scrn Not Detected (NotDetected) U Benzodiazepines Scrn Detected H (NotDetected) Urine Cocaine Screen Not Detected (NotDetected) U Marijuana (THC) Screen Not Detected (NotDetected) SARS-CoV-2 (PCR) Not Detected (Not Detectd) Disposition Clinical Impression: Alcohol abuse, Depression Disposition: HOME SELF-CARE Condition: Stable Instructions (If sedation given, give patient instructions): Depression (ED) Additional Instructions: Please return to the Emergency Department if symptoms worsen or any other concerns. Is patient prescribed a controlled substance at d/c from ED?: No Referrals: Francheska Chandra DO [Primary Care Provider] - 1-2 days Forms: [facility], Outpatient Counseling, In Substance Abuse Facilities Time of Disposition: 12:42
[2023-08-29] MEDS: ACETAMINOPHEN TAB 500 MG TAB PO STA (09:26)
[2023-08-29 13:32] VITALS: BP 101/68; PULSE 74; RESP 17; TEMP 98.7
== END 2023-08-29 12:55 | disposition home or self-care (01) ==
LOC: EC 12:03
DX: F32.A Depression, unspecified (principal); F10.10 Alcohol abuse, uncomplicated; F17.200 Nicotine dependence, unspecified, uncomplicated; Z11.52 Encounter for screening for COVID-19; Z88.1 Allergy status to other antibiotic agents; Z88.2 Allergy status to sulfonamides
CPT/HCPCS: 80306; 82075; 87635; 99285

== ENCOUNTER 2024-04-17 08:48 | Emergency (ER) | payer OTHER ==
[2024-04-17 08:59] VITALS: TEMP 97.8
--- NOTE | 2024-04-17 09:13 | ED ---
General Adult HPI - General Chief complaint: Abdominal Pain Stated complaint: Abd pain Time Seen by Provider: 04/17/24 08:52 Source: patient, EMS, RN notes reviewed, old records reviewed Mode of arrival: EMS Limitations: no limitations - History of Present Illness Initial comments: Patient is a 49-year-old female who presents from [facility] for elevated liver enzymes. They are monitoring liver enzymes as they want to start the patient on Vistaril. Patient has a history of alcohol abuse, remote history of Tylenol overdose, as well as cocaine abuse. She has been sober for over a month. Denies any chest pain or shortness of breath. Endorses epigastric and right upper quadrant abdominal discomfort which she has been experiencing for over a month intermittently. States she was seen at [facility] where they did advise possibly removing her gallbladder. This was before she entered rehab. Has not followed up since. States the abdominal symptoms have been present on and off over the last few weeks. The LFT elevation was just found this week. Otherwise denies any symptoms including denying nausea, vomiting, diarrhea. Does have a history of gastric bypass surgery. Presents for further evaluation at this time.Patient does request to be tested for syphilis as her significant other tested positive for syphilis recently. She also requests we did test her for upper respiratory infection as she has been having congestion, productive cough. Will obtain chest x-ray, as well as viral swabs. - Related Data Home Medications Medication Instructions Recorded Confirmed Cetirizine HCl [Zyrtec] 10 mg PO DAILY 04/02/23 08/28/23 Disulfiram [Antabuse] 250 mg PO HS 04/02/23 08/28/23 Naltrexone HCl [Revia] 50 mg PO DAILY 04/02/23 08/28/23 Naltrexone Microspheres [Vivitrol] 380 mg IM Q28D 08/28/23 08/28/23 Previous Rx's Medication Instructions Recorded Escitalopram [Lexapro] 20 mg PO DAILY 30 Days #30 tablet 06/10/23 hydrOXYzine pamoate [Vistaril] 50 mg PO QID PRN 30 Days #120 cap 06/10/23 Allergies Allergy/AdvReac Type Severity Reaction Status Date / Time sulfamethoxazole Allergy Rash/Hives Verified 04/17/24 09:00 [From Bactrim] trimethoprim [From Bactrim] Allergy Rash/Hives Verified 04/17/24 09:00 Review of Systems ROS Statement: Those systems with pertinent positive or pertinent negative responses have been documented in the HPI. Review of Systems: CONST: Denies fever EYES: Denies blurry vision ENT: Denies nasal congestion C/V: Denies Chest pain RESP: Denies shortness of breath GI: Endorses mild abdominal pain : Denies dysuria SKIN: Denies rash. MSK: Denies joint pain. NEURO: Denies headache ROS Other: All systems not noted in ROS Statement are negative. Past Medical History Past Medical History: No Reported History History of Any Multi-Drug Resistant Organisms: None Reported Additional Past Surgical History / Comment(s): gastric bypass Past Anesthesia/Blood Transfusion Reactions: No Reported Reaction Past Psychological History: Anxiety, Depression Smoking Status: Current every day smoker Past Alcohol Use History: Abuse, Daily Past Drug Use History: Marijuana General Exam - General Exam Comments Initial Comments: General: Appears in no acute distress. HEAD: Normal with no signs of head trauma. EYES: PERRLA, EOMI, conjunctiva normal, no discharge. ENT: Hearing grossly intact, normal oropharynx. RESPIRATORY: Clear breath sounds bilaterally. No wheezes, rales, or rhonchi. C/V: Regular rate and rhythm. S1 and S2 auscultated, no edema, peripheral pulses 2+ and intact throughout ABD: Abdomen soft, nondistended. No significant tenderness to palpation. No guarding or rebound tenderness. No peritoneal signs. EXT: Normal range of motion, no obvious deformity SKIN: No rashes or lesions observed on exposed skin. NEURO: Alert and oriented x 4. Limitations: no limitations Course Vital Signs 04/17/24 08:53 Temperature 97.8 F Pulse Rate 73 Respiratory 18 Rate Blood Pressure 112/70 O2 Sat by Pulse 98 Oximetry Medical Decision Making - Medical Decision Making Was pt. sent in by a medical professional or institution (, PA, ENGINEERING MANAGER, urgent care, hospital, or prison...) When possible be specific @ -Sent from [place] [facility] for elevated LFTs. Did you speak to anyone other than the patient for history (EMS, parent, family, police, friend...)? What history was obtained from this source @ -No Did you review nursing and triage notes (agree or disagree)? Why? @ -I reviewed and agree with nursing and triage notes Were old charts reviewed (outside hosp., previous admission, EMS record, old EKG, old radiological studies, urgent care reports/EKG's, prison records)? Report findings @ -Old charts reviewed which does show that patient was admitted to our hospital in May of this year which showed an acute intentional Tylenol ingestion. Differential Diagnosis (chest pain, altered mental status, abdominal pain women, abdominal pain men, vaginal bleeding, weakness, fever, dyspnea, syncope, headache, dizziness, GI bleed, back pain, seizure, CVA, palpatations, mental health, musculoskeletal)? @ -Differential Abdominal Pain Women: Appendicitis, Cholecystitis, diverticulosis, ischemic bowel, pancreatitis, hepatitis, UTI, gastroenteritis, AAA, incarcerated hernia, bowel obstruction, constipation, inflammatory bowel, hepatitis, peptic ulcer disease, splenic infarction, perforated viscus, vulvitis, ovarian torsion, PID, kidney stone, placenta abruption, this is not meant to be an all-inclusive list EKG interpreted by me (3pts min.). @ -As above X-rays interpreted by me (1pt min.). @ -Chest x-ray shows no obvious acute process. But it does show the mass in the posterior costophrenic angle mass. CT interpreted by me (1pt min.). 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 Shows the gastric bypass which is stable. Patient did have mild splenomegaly. U/S interpreted by me (1pt. min.). @ - Gallbladder ultrasound shows a polyp versus nonobstructing gallstone. Patient had hepatomegaly. CBD is at the upper limits of normal at 6 mm. What testing was considered but not performed or refused? (CT, X-rays, U/S, labs)? Why? @ -None What meds were considered but not given or refused? Why? @ -None Did you discuss the management of the patient with other professionals (professionals i.e. , PA, ENGINEERING MANAGER, lab, RT, psych nurse, hospital social worker, shipping and receiving weigher, teacher, gift officer, director case)? Give summary @ -I spoke with Dr. Briggs, transferring physician at [facility] who acc epted the transfer. Was smoking cessation discussed for >3mins.? @ -No Was critical care preformed (if so, how long)? @ -yes, 34 minutes Were there social determinants of health that impacted care today? How? (Homelessness, low income, unemployed, alcoholism, drug addiction, transportation, low edu. Level, literacy, decrease access to med. care, correction, rehab)? @ -No Was there de-escalation of care discussed even if they declined (Discuss DNR or withdrawal of care, Hospice)? DNR status @ -No What co-morbidities impacted this encounter? (DM, HTN, Smoking, COPD, CAD, Cancer, CVA, ARF, Chemo, Hep., AIDS, mental health diagnosis, sleep apnea, morbid obesity)? @ -Remote history of Tylenol overdose, chronic abdominal discomfort, alcohol abuse history Was patient admitted / discharged? Hospital course, mention meds given and route, prescriptions, significant lab abnormalities, going to OR and other pertinent info. @ -Patient presents emergency department for abdominal pain with elevated LFTs. Is also requesting syphilis testing as well as testing for upper respiratory infection as she is having mild cough and congestion. Will obtain abdominal workup, gallbladder ultrasound, CT abdomen/pelvis, chest x-ray, as well as laboratory studies. Patient will be given IV fluids. She declines any other medications at this time. She otherwise is resting comfortably. Vitals are within acceptable limits. EKG shows no signs of acute ischemia.Patient's laboratory studies remarkable for elevated LFTs with AST of 738, ALT of 1170. Alk phos is 163. Earlier this week, LFTs were in the low 100s. Bilirubin is within acceptable limits. Remainder the labs unremarkable. 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 Shows the gastric bypass which is stable. Patient did have mild splenomegaly. Gallbladder ultrasound shows a polyp versus nonobstructing gallstone. Patient had hepatomegaly. CBD is at the upper limits of normal at 6 mm. Chest x-ray shows no obvious acute process. But it does show the mass in the posterior costophrenic angle mass. I updated the patient with results of her workup as well as imaging. We discussed the findings on her CAT scan and she states that the mass is known to her and they did do a biopsy at [facility] but she never found out the results. This was done a month ago. She is resting comfortably at this time. I did discuss with her admission versus transfer back to [facility] where she had all of her previous testing and she would prefer to go back to [facility]. She wants to be evaluated by GI specialist and I believe this is reasonable as we do not have GI available at our facility this week. I spoke w ith Dr. Briggs, transferring physician at [facility] who accepted the transfer. Patient be transferred in stable condition. Undiagnosed new problem with uncertain prognosis? @ -No Drug Therapy requiring intensive monitoring for toxicity (Heparin, Nitro, Insulin, Cardizem)? @ -No Were any procedures done? @ -No Diagnosis/symptom? @ -Elevated LFTs, possible hepatitis Acute, or Chronic, or Acute on Chronic? @ -Acute Uncomplicated (without systemic symptoms) or Complicated (systemic symptoms)? @ -Complicated Side effects of treatment? @ -None Exacerbation, Progression, or Severe Exacerbation] @ -No Poses a threat to life or bodily function? @ -Potentially, yes Diagnosis/symptom? @ -Lung mass Acute, or Chronic, or Acute on Chronic? @ -Chronic Uncomplicated (without systemic symptoms) or Complicated (systemic symptoms)? @ -Uncomplicated at this time Side effects of treatment? @ -None Exacerbation, Progression, or Severe Exacerbation] @ -No Poses a threat to life or bodily function? @ -Unknown - Lab Data Result diagrams: 04/17/24 09:00 04/17/24 09:00 Lab Results 04/17/24 04/17/24 04/17/24 Range/Units 09:00 09:00 09:00 WBC 7.0 (3.8-10.6) k/uL RBC 4.25 (3.80-5.40) m/uL Hgb 13.5 (11.4-16.0) gm/dL Hct 41.9 (34.0-46.0) % MCV 98.5 (80.0-100.0) fL MCH 31.6 (25.0-35.0) pg MCHC 32.1 (31.0-37.0) g/dL RDW 12.6 (11.5-15.5) % Plt Count 248 (150-450) k/uL MPV 8.1 Neutrophils % 57 % Lymphocytes % 27 % Monocytes % 9 % Eosinophils % 2 % Basophils % 1 % Neutrophils # 4.0 (1.3-7.7) k/uL Lymphocytes # 1.9 (1.0-4.8) k/uL Monocytes # 0.6 (0-1.0) k/uL Eosinophils # 0.2 (0-0.7) k/uL Basophils # 0.0 (0-0.2) k/uL PT 10.4 (10.0-12.5) sec INR 0.9 (<1.2) APTT 26.9 (22.0-30.0) sec Sodium (137-145) mmol/L Potassium (3.5-5.1) mmol/L Chloride (98-107) mmol/L Carbon Dioxide (22-30) mmol/L Anion Gap mmol/L BUN (7-17) mg/dL Creatinine (0.52-1.04) mg/dL Est GFR (CKD-EPI)AfAm (>60 ml/min/1.73 sqM) Est GFR (CKD-EPI)NonAf (>60 ml/min/1.73 sqM) Glucose (74-99) mg/dL Plasma Lactic Acid Pavan (0.7-2.0) mmol/L Calcium (8.4-10.2) mg/dL Magnesium (1.6-2.3) mg/dL Total Bilirubin (0.2-1.3) mg/dL Conjugated Bilirubin (0.0-0.3) mg/dL Unconjugated Bilirubin (0.0-1.1) mg/dL Delta Bilirubin (0.0-0.2) mg/dL AST (14-36) U/L ALT (4-34) U/L Alkaline Phosphatase (38-126) U/L Total Protein (6.3-8.2) g/dL Albumin (3.5-5.0) g/dL Amylase (30-110) U/L Lipase (23-300) U/L Urine Color Light Yellow Urine Appearance Clear (Clear) Urine pH 7.5 (5.0-8.0) Ur Specific Elsa 1.005 (1.001-1.035) Urine Protein Negative (Negative) Urine Glucose (UA) Negative (Negative) Urine Ketones Negative (Negative) Urine Blood Negative (Negative) Urine Nitrite Negative (Negative) Urine Bilirubin Negative (Negative) Urine Urobilinogen <2.0 (<2.0) mg/dL Ur Leukocyte Esterase Negative (Negative) Salicylates mg/dL Acetaminophen ug/mL Serum Alcohol mg/dL Influenza Type A (PCR) (Not Detectd) Influenza Type B (PCR) (Not Detectd) RSV (PCR) (Not Detectd) SARS-CoV-2 (PCR) (Not Detectd) 04/17/24 04/17/24 04/17/24 Range/Units 09:00 09:00 09:00 WBC (3.8-10.6) k/uL RBC (3.80-5.40) m/uL Hgb (11.4-16.0) gm/dL Hct (34.0-46.0) % MCV (80.0-100.0) fL MCH (25.0-35.0) pg MCHC (31.0-37.0) g/dL RDW (11.5-15.5) % Plt Count (150-450) k/uL MPV Neutrophils % % Lymphocytes % % Monocytes % % Eosinophils % % Basophils % % Neutrophils # (1.3-7.7) k/uL Lymphocytes # (1.0-4.8) k/uL Monocytes # (0-1.0) k/uL Eosinophils # (0-0.7) k/uL Basophils # (0-0.2) k/uL PT (10.0-12.5) sec INR (<1.2) APTT (22.0-30.0) sec Sodium 139 (137-145) mmol/L Potassium 4.1 (3.5-5.1) mmol/L Chloride 103 (98-107) mmol/L Carbon Dioxide 33 H (22-30) mmol/L Anion Gap 3 mmol/L BUN 8 (7-17) mg/dL Creatinine 0.52 (0.52-1.04) mg/dL Est GFR (CKD-EPI)AfAm >90 (>60 ml/min/1.73 sqM) Est GFR (CKD-EPI)NonAf >90 (>60 ml/min/1.73 sqM) Glucose 78 (74-99) mg/dL Plasma Lactic Acid Pavan 0.8 (0.7-2.0) mmol/L Calcium 9.0 (8.4-10.2) mg/dL Magnesium 2.0 (1.6-2.3) mg/dL Total Bilirubin 0.6 (0.2-1.3) mg/dL Conjugated Bilirubin 0.0 (0.0-0.3) mg/dL Unconjugated Bilirubin 0.3 (0.0-1.1) mg/dL Delta Bilirubin 0.3 H (0.0-0.2) mg/dL AST 768 H (14-36) U/L ALT 1170 H (4-34) U/L Alkaline Phosphatase 163 H (38-126) U/L Total Protein 6.7 (6.3-8.2) g/dL Albumin 4.0 (3.5-5.0) g/dL Amylase 54 (30-110) U/L Lipase 195 (23-300) U/L Urine Color Urine Appearance (Clear) Urine pH (5.0-8.0) Ur Specific Elsa (1.001-1.035) Urine Protein (Negative) Urine Glucose (UA) (Negative) Urine Ketones (Negative) Urine Blood (Negative) Urine Nitrite (Negative) Urine Bilirubin (Negative) Urine Urobilinogen (<2.0) mg/dL Ur Leukocyte Esterase (Negative) Salicylates <1.0 mg/dL Acetaminophen <10.0 ug/mL Serum Alcohol <10 mg/dL Influenza Type A (PCR) Not Detected (Not Detectd) Influenza Type B (PCR) Not Detected (Not Detectd) RSV (PCR) Not Detected (Not Detectd) SARS-CoV-2 (PCR) Not Detected (Not Detectd) - EKG Data -: EKG Interpreted by Me EKG Comments: 12-lead Electrocardiogram Interpretation Note EKG was reviewed and interpreted by myself. 12-lead ECG performed at 0910 is interpreted by me as revealing sinus bradycardia at a rate of 58 beats per minute. [place] is normal. AR interval is 151 ms, QRS duration is 102 ms, QTc is 424 ms.. There were no ST or T wave abnormalities to suggest myocardial ischemia or injury. R wave progression across the precordium was satisfactory. By my interpretation this EKG is non-diagnostic for acute ischemia. Critical Care Time Critical Care Time: Yes Total Critical Care Time: 34 Disposition Clinical Impression: Elevated LFTs, Lung mass Disposition: OTHER INSTITUTION NOT DEFINED Condition: Stable Referrals: Nonstaff,Physician [Primary Care Provider] - 1-2 days Time of Disposition: 13:04 - Out of Hospital Transfer - Req. Specs Out of Hospital Transfer - Requested Specifics: Other Emergency Center (Transfer for GI evaluation for acutely elevated LFT of unknown etiology. No GI at our facility.)
[2024-04-17] MEDS: SODIUM CHLORIDE 0.9% 1,000 ML IV STA (09:17)
[2024-04-17] MEDS: SODIUM CHLORIDE 0.9% 500 ML 500 ML IV STA (09:17)
[2024-04-17 09:34] LABS: Basophils % (A) 1 %; Eosinophils # (A) 0.2 k/uL (0-0.7); Eosinophils % (A) 2 %; HCT 41.9 % (34.0-46.0); HGB 13.5 gm/dL (11.4-16.0); Lymphocytes # (A) 1.9 k/uL (1.0-4.8); Lymphocytes % (A) 27 %; MCH 31.6 pg (25.0-35.0); MCHC 32.1 g/dL (31.0-37.0); MCV 98.5 fL (80.0-100.0); Mean Platelet Volume 8.1; Monocytes # (A) 0.6 k/uL (0-1.0); Monocytes % (A) 9 %; Neutrophils % (A) 57 %; Platelet Count 248 k/uL (150-450); RBC 4.25 m/uL (3.80-5.40); RDW 12.6 % (11.5-15.5)
[2024-04-17 09:40] LABS: Appearance,Urine Clear (Clear); Bilirubin,Urine Negative (Negative); Blood,Urine Negative (Negative); Color,Urine Light Yellow; Glucose,Urine (UA) Negative (Negative); Ketones,Urine Negative (Negative); Leukocyte Esterase,Urine Negative (Negative); Nitrite,Urine Negative (Negative); PH, Urine 7.5 (5.0-8.0); Protein,Urine Negative (Negative); Specific Gravity,Urine 1.005 (1.001-1.035); Urobilinogen,Urine <2.0 mg/dL (<2.0)
[2024-04-17 09:49] LABS: INR 0.9 (<1.2); Partial Thromboplastin Time 26.9 sec (22.0-30.0); Prothrombin Time 10.4 sec (10.0-12.5)
[2024-04-17 09:52] LABS: Acetaminophen <10.0 ug/mL; African American GFR (CKD) >90 (>60 ml/min/1.73 sqM); Alcohol <10 mg/dL; Alkaline Phosphatase 163 U/L (38-126); Amylase 54 U/L (30-110); Anion Gap 3 mmol/L; Bilirubin, Delta 0.3 mg/dL (0.0-0.2); Bilirubin,Unconjugated 0.3 mg/dL (0.0-1.1); Blood Urea Nitrogen 8 mg/dL (7-17); Carbon Dioxide 33 mmol/L (22-30); Chloride 103 mmol/L (98-107); Glucose 78 mg/dL (74-99); Lipase 195 U/L (23-300); Non-African American GFR(CKD) >90 (>60 ml/min/1.73 sqM); Potassium 4.1 mmol/L (3.5-5.1); Salicylate <1.0 mg/dL; Sodium 139 mmol/L (137-145); Total Bilirubin 0.6 mg/dL (0.2-1.3); Total Protein 6.7 g/dL (6.3-8.2)
[2024-04-17 10:16] LABS: ALT 1170 U/L (4-34); AST 768 U/L (14-36)
--- NOTE | 2024-04-17 10:36 | CT ---
EXAMINATION TYPE: CT abdomen pelvis w con DATE OF EXAM: 04/17/2024 9:50 AM COMPARISON: None. CLINICAL INDICATION: Female, 49 years old with history of abdominal pain, EPIGASTRIC PAIN, TECHNIQUE: Contiguous axial scanning of the abdomen and pelvis following administration of 100 ml Omn ipaque 300 IV contrast. Delayed images through the kidneys and coronal/sagittal reconstructions perf ormed. CT DLP: 701.7 mGycm, Automated exposure control for dose reduction was used. FINDINGS: Heart normal size without pericardial effusion. Some strandy atelectasis at the posterior lung bases. In addition, there is a rounded 4.0 x 2.9 x 4.3 cm area along the posterior left costophrenic angle. Possible trace adjacent pleural fluid. Etiology unclear. Postsurgical changes of Nasir-en-Y gastric bypass. Tiny right hepatic dome cyst measuring 5 mm. Small 7 mm area of hypervascularity near the gallbladder fossa suggesting vascular shunting. Portal venous system is patent. No biliary ductal dilatation. Adrenal glands, gallbladder, right kidney, pancreas within normal limits. Spleen enlarged at 14.7 cm. Nonobstructive 4 mm left renal stone. 9 mm cortical cyst posterior left k idney. Some prominent fluid filled small bowel loops along the right side of the abdomen. No dilated small b owel, free fluid, or free air. Scattered mild stable. No pericolonic inflammatory change. Bladder is partially distended. Uterus surgically absent. A couple tiny right-sided pelvic phlebolith s. No abnormal fluid collection in the pelvis or pelvic lymphadenopathy seen. Bones: Mild degenerative spurring at the hips. Mild degenerative change of the bilateral SI joints. Some hypertrophic facet arthropathy lower lumbar spine especially towards the left. IMPRESSION: 1. A ROUNDED LESION MEASURING 4.3 X 4.0 X 2.9 CM ALONG THE POSTERIOR LEFT COSTOPHRENIC ANGLE. ETIOLOG Y IS UNCLEAR. FIBROUS TUMOR OF THE PLEURA, MESENCHYMAL TUMOR SUCH MYOMA, AND SCHWANNOMA ARE SOME D IFFERENTIAL CONSIDERATIONS. MORE AGGRESSIVE ETIOLOGIES NOT EXCLUDED AT THIS TIME. RECOMMEND PULMONARY MEDICINE REFERRAL FOR FURTHER ASSESSMENT/FOLLOW-UP. PET/CT CAN ALSO BE CONSIDERED. ADJACENT TRACE FL UID SUGGESTS SOME PLEURAL REACTION. 2. STATUS POST NASIR-EN-Y GASTRIC BYPASS. 3. MILD SPLENOMEGALY AT 14.7 CM. CLINICALLY CORRELATE. 4. NONOBSTRUCTIVE 4 MM LEFT RENAL STONE. [facility], , 04/17/2024 10:33 AM
--- NOTE | 2024-04-17 10:37 | XR ---
EXAMINATION TYPE: XR chest 2V DATE OF EXAM: 04/17/2024 9:38 AM COMPARISON: None CLINICAL INDICATION: Female, 49 years old with history of abdominal pain, , TECHNIQUE: PA and lateral views FINDINGS: The heart is normal size. Aorta and pulmonary vasculature are within normal limits. There is some foc al posterior basilar opacity on the lateral view which corresponds to the left costophrenic angle reg ion on CT. No other consolidation or pleural effusion. IMPRESSION: Some focal opacity posterior base on the lateral view corresponds to the lesion along the left condominium property manager ior costophrenic angle on CT. Otherwise, no acute process seen. [facility], , 04/17/2024 10:34 AM
--- NOTE | 2024-04-17 12:21 | US ---
EXAMINATION TYPE: US gallbladder DATE OF EXAM: 04/17/2024 COMPARISON: NONE CLINICAL INDICATION: Female, 49 years old with history of abd pain; Abdominal pain. Hx gastric bypass . TECHNIQUE: Grayscale and color Doppler imaging of the right upper quadrant. FINDINGS: EXAM MEASUREMENTS: Liver Length: 17.2 cm Gallbladder Wall: 0.20 cm CBD: 0.60 cm, color Doppler imaging was utilized to isolate the common bile duct for measurement. Right Kidney: 12.6 x 6.8 x 4.5 cm CIGARETTE INSPECTOR NOTES: Exam is limited due to gas. Pancreas: Portion of tail was obscured. Duct measures 1.7 mm at head, within normal limits. Liver: Mildly increased echogenicity with coarse echotexture. Measures upper limits. *Hypoechoic are a seen near gallbladder = 1.4 x 1.6 x 0.8 cm. Likely representing some focal fatty sparing. Gallbladder: *Nonshadowing echogenic nodule along the posterior wall measuring 0.6 x 0.3 x 0.2 cm. N o abnormal gallbladder distention, wall thickening, or surrounding fluid. Evidence for sonographic So's sign: No CBD: Measures upper limits. Right Kidney: No hydronephrosis. A 4 mm echogenic focus at the upper pole probably a prominent vascul ar reflector. IMPRESSION: 1. Borderline hepatomegaly at 17.2 cm. There may be mild fatty infiltration of the liver as well. A 1 .6 cm hypoechoic area near the gallbladder fossa probably represents some focal fatty sparing. Reasse ss at a 6 month follow-up ultrasound. 2. Bile duct upper limits of normal in caliber at 6 mm. Correlate with alkaline phosphatase and bilir ubin levels to exclude early biliary obstruction. 3. Either a 6 mm gallbladder wall polyp versus nonshadowing stone. No ancillary imaging findings of a cute cholecystitis. [facility], , 04/17/2024 12:18 PM
[2024-04-17 14:04] VITALS: BP 118/72; PULSE 64; RESP 16
== END 2024-04-17 14:04 | disposition other institution (70) ==
LOC: EC 08:48
DX: R91.8 Other nonspecific abnormal finding of lung field (principal); R94.5 Abnormal results of liver function studies; F17.200 Nicotine dependence, unspecified, uncomplicated; Z88.2 Allergy status to sulfonamides
CPT/HCPCS: 36415; 93005; 80053; 82150; 82248; 83605; 83690; 83735; 85025; 85610; 85730; 81003; 86780; 80143; 87636; 80179; 71046; 76705; 74177; 99284; 96360; 96361 ×4; G0480; Q9967; 80320